=== PATIENT | male | born 1960 | race Caucasian/White ===

== ENCOUNTER 2018-03-16 11:58 | Emergency (ER) | payer OTHER ==
[~2018-03-16] VITALS: Ht 182.9 cm; Wt 100.7 kg
[2018-03-16] MEDS ORDERED: Inderal40 MG PO (12:46)
[2018-03-16] MEDS ORDERED: METPRE4DP PO (16:30)
[2018-03-16] MEDS ORDERED: META800 PO (16:30)
[2018-03-16] MEDS ORDERED: Percocet 5-3251 EACH PO (16:30)
== END 2018-03-16 16:36 | disposition home or self-care (01) ==
LOC: ER 11:58
DX: M54.16 Radiculopathy, lumbar region (principal); Z88.8 Allergy status to other drugs, medicaments and biological substances; Z79.899 Other long term (current) drug therapy; I10 Essential (primary) hypertension
CPT/HCPCS: 72148; 96374; 99284-25; J2060

== ENCOUNTER 2018-03-19 12:43 | Emergency (ER) | payer OTHER ==
[~2018-03-19] VITALS: Ht 182.9 cm; Wt 90.7 kg
[~2018-03-19 12:43] MED LIST: Inderal40 MG PO; META800 PO; METPRE4DP PO; Percocet 5-3251 EACH PO
[2018-03-19] MEDS ORDERED: Hydroxyzine HCl50 MG (13:51)
[2018-03-19] MEDS ORDERED: NAPR500EC PO (13:52)
[2018-03-19] MEDS ORDERED: KETO10 PO (14:47)
[2018-03-19] MEDS ORDERED: Ultram50 MG PO (14:47)
== END 2018-03-19 14:51 | disposition home or self-care (01) ==
LOC: ER 12:43
DX: Z76.0 Encounter for issue of repeat prescription (principal); I10 Essential (primary) hypertension; Z88.1 Allergy status to other antibiotic agents; Z79.899 Other long term (current) drug therapy
CPT/HCPCS: 96372; 99283-25; J1885